=== PATIENT | female | born 1965 | race Caucasian/White ===

== ENCOUNTER 2022-02-02 08:10 | Day surgery (SDC) | payer MEDICARE, MEDICAID, SELFPAY ==
[2022-01-31 13:03] LABS: Hematocrit 40.3 % (37-47); Hemoglobin 13.1 g/dL (12.0-15.0); Mean Corp Hgb Conc 32.5 g/dL (32-36); Mean Corpuscular Hgb 28.9 pg (27.0-32.0); Mean Corpuscular Volume 88.8 fL (81-99); Mean Platelet Vol. 10.7 fl (6.2-12.0); Platelet Count 195 K/mm3 (150-450); RBC Distribution Width CV 13.6 % (11.6-14.6); RBC Distribution Width SD 44.4 fl (35.1-43.9); Red Blood Count 4.54 M/mm3 (4.2-5.4)
[2022-02-02] VITALS (8 sets, daily range): BP systolic 95–119; BP diastolic 42–81; PULSE 60–66; RESP 16–18; TEMP 36.3–36.6; O2SAT 97–100; BMI 54.2
[2022-02-02] MEDS: Lidocaine 1% (20 ml mdv) 20 ML Vial (08:42)
[2022-02-02] MEDS: Lactated Ringers 1,000 ML 15 ML IV (08:42)
--- NOTE | 2022-02-02 09:50 | EMB_PTH ---
PATIENT: GILMAR HOLLOWAY LOC: [facility] – [place] U#:[id number] AGE/SX: 56/F ROOM: RE02/02/[address]: Dr. Sharon Andre DO : 1965 BED: DIS: 02/02/2022 SPEC #: [id number] RECD: 02/02/22 12:48 STATUS: LEO REINIER #: [id number] KRISTEN: 02/02/22 09:[address]: Sharon Andre DEPT: SURGICAL PATHOLOGY RECD BY: Priti Schroeder ENTERED: 02/03/22 07:22 SP TYPE: ENDOM BX/C LG DR: Dr. Dennys Trejo MD Tissues: Endometrium, NOS Procedures: Surgery Specimen Level IV HEADER OPERATION: Hysteroscopy, D & C Symphion, polypectomy PRE-OP DIAGNOSIS: Stenotic cervix, PMB, thickened endometrium TISSUE SUBMITTED: Polyp and endometrial curettings MICROSCOPIC DIAGNOSIS Polyp and endometrial curettings: Fragments of weakly proliferative endometrium and mucous. See comment. JAIME:ebonie 02/06/2022 COMMENT A few of the fragments show polypoid and hyalinized appearance may represent fragment of polyp. Clinical correlation and appropriate follow up are necessary. MICROSCOPIC DESCRIPTION Slides are reviewed. GROSS DESCRIPTION Received in fixative is one container labeled with the patient's name and designated polyp and endometrial curettings. The specimen consists of multiple fragments of hemorrhagic soft tissue mixed with mucoid tissue that in aggregate measure 3 x 2.5 x 0.3 cm. The specimen is totally submitted in one cassette. / JAIME:ebonie 02/03/2022 TC:5 CPT: 75157
--- NOTE | 2022-02-02 10:02 | PCM.DC ---
Discharge Instructions Diet Discharge Diet: No restrictions Activity Discharge Activity: May Drive (Once you are at least 24 hours out from surgery) and May Shower May resume sexual activity in: 1-2 weeks Weight Bearing Status: Weight bearing as tolerated Lifting Restrictions: none Additional Activity Instructions:: No tampons, intercourse, hot tubs, tub baths, or pools for 1 week Dressing / Incision Call your doctor if you observe: Fever of 101 or Higher, Coldness, Increased Pain, Numbness or Tingling, Change in Color, Inability to urinate, Inability to have a bowel movement, Using more than 1 pad per hour, Dizziness, Swelling in the ankles, Chest pain, Increased palpitations (irregular heartbeat), Calf discomfort and Uncontrolled pain Follow Up Care Please Follow Up With: Sharon Andre DO When: 1 week Test Results: Test results from this visit will be discussed in further detail at your follow-up appointment, if applicable. Discharge Plan Admission Primary Reason for Your Visit: surgery Attending Provider: Sharon Andre Primary Care Provider: Dennys Trejo Discharge Orders/Prescriptions Prescriptions: Continued propranolol [Inderal LA] 120 MG capsule,extended release 24 hr 120 mg PO DAILY RF: 0 hydroxychloroquine [Plaquenil] 200 MG tablet 200 mg PO BID RF: 0 duloxetine [Cymbalta] 60 MG capsule 120 mg PO DAILY RF: 0 triamterene-hydrochlorothiazid 37.5-25 mg capsule 1 cap PO DAILY RF: 0 omeprazole 20 mg capsule,delayed release(DR/EC) 20 mg PO BID RF: 0 Myrbetriq 25 mg tablet extended release 24 hr 25 mg PO DAILY RF: 0 Eliquis 2.5 mg tablet 2.5 mg PO BID RF: 0 Osphena 60 mg tablet 60 mg PO DAILY RF: 0 multivitamin Tablet 1 tab PO DAILY RF: 0 vitamin B complex Tablet 1 tab PO DAILY RF: 0 cholecalciferol (vitamin D3) [Vitamin D3] 25 mcg (1,000 unit) Tablet 100 mcg PO DAILY RF: 0 Joint Health 40-10-5-3.3 mg Tablet 2 tab PO BID RF: 0 Referrals / Follow Up: Dennys Trejo MD [Primary Care Provider] - Disposition Disposition (needs filled in before D/C Order can be placed): Home, Self Care
--- NOTE | 2022-02-02 10:03 | PCM.OPRPT ---
Problems Associated Problem List Diagnoses (1) PMB (postmenopausal bleeding): (2) Thickened endometrium: Report of Operation Date of Procedure: 02/02/22 Pre-Operative Diagnosis: PMB, thickened endometrium Post-Operative Diagnosis: As above, endometrial polyp Surgery/Procedure Performed:: Hysteroscopy, polypectomy, D&C Description of Surgical Findings:: 1 endometrial polyp noted on posterior wall of uterus. Endometrium was atrophic appearing. Uterine cavity was otherwise normal appearing. Bilateral tubal ostia visualized. Surgeon: Sharon Andre Type of Anesthesia: MAC Special Medications: None Specimen's removed: Endometrial curettings and endometrial polyp Drains: None Estimated Blood Loss (mL): < 50 cc Fluids Replaced: 350 cc deficit Description of Procedure: Patient was taken to the operating room where MAC anesthesia was found to be adequate. She was prepped and draped in the dorsal lithotomy position using yellow fin stirrups. A right angle was placed in the posterior vagina to expose the cervix. A single-tooth tenaculum was placed on the anterior lip of the cervix. The cervix was stenotic, but easily dilated to accommodate the hysteroscope. The Symphion hysteroscope was advanced to the fundus of the uterus and distended with normal saline. 1 endometrial polyp was noted. Using the Symphion resection device the polyp was resected. This hysteroscope was then removed. A sharp curettage was performed. Endometrial curettings and endometrial polyp were sent to pathology for review. The endometrium was otherwise atrophic. Bilateral tubal ostia were visualized. All instruments were removed from the vagina. Bleeding was hemostatic. Vaginal sweep was performed. The patient was taken to the recovery in stable condition. Grafts/Implants Used: None Complications None Admit VTE Documentation VTE Present on Admission: No VTE Mechan Device Prophylaxis: SCD's
== END 2022-02-02 23:59 | disposition home or self-care (01) ==
LOC: SDC 08:12 → AC 08:12
PROVIDERS: PCP Internal Medicine; Referring Provider Obstetrics & Gynecology; Visit Provider Obstetrics & Gynecology
PROC: 0UB98ZZ Excision of Uterus, Via Natural or Artificial Opening Endoscopic (ICD-10-PCS; CPT 58558; principal; 2022-02-02 09:35)
DX: N84.0 Polyp of corpus uteri (principal); M35.00 Sjogren syndrome, unspecified; D68.59 Other primary thrombophilia; N95.0 Postmenopausal bleeding; I10 Essential (primary) hypertension; M79.7 Fibromyalgia; Z86.718 Personal history of other venous thrombosis and embolism; F32.A Depression, unspecified; G47.33 Obstructive sleep apnea (adult) (pediatric); G56.03 Carpal tunnel syndrome, bilateral upper limbs; Z79.899 Other long term (current) drug therapy; Z79.01 Long term (current) use of anticoagulants; M19.90 Unspecified osteoarthritis, unspecified site; K21.9 Gastro-esophageal reflux disease without esophagitis
CPT/HCPCS: 58558; 00952; 36415; 85027; 86850; 86900; 86901; 88305; J7120; J2405

== ENCOUNTER → 2022-03-16 | Outpatient (CLI) | payer MEDICARE, MEDICAID, SELFPAY ==
--- NOTE | 2022-03-16 07:40 | CT_ITS ---
EXAM: CT MAXILLOFACIAL SINUSES WITHOUT INTRAVENOUS CONTRAST CLINICAL INDICATION: CHRONIC SINUSITIS, ETHMOID POLYP TECHNIQUE: Helically acquired images were obtained of the maxillofacial sinuses without intravenous contrast. This CT exam was performed using one or more of the following dose reduction techniques: automated exposure control, adjustment of the mA and/or kV according to patient size, and/or use of iterative reconstruction technique. This report was created using [employer] report generation technology. RADIATION DOSE: CTDIvol = 33.06 mGy, DLP = 755.34 mGy-cm COMPARISON: Jun 24 2016 11:23am FINDINGS: MAXILLARY SINUSES: Complete opacification of the left maxillary sinus. Ostiomeatal complexes are normally formed. SPHENOID SINUSES: Complete opacification of the sphenoid sinus. FRONTAL SINUSES: Complete opacification of the left frontal sinus. ETHMOID AIR CELLS: Complete opacification of the left ethmoid sinus. Mild opacification of the right ethmoid sinus. NASAL CAVITY/SEPTUM: Nasal septum is midline. Nasal turbinates are unremarkable. BONES/JOINTS: Anterior cranial fossa is unremarkable. ORBITS: Unremarkable. DENTAL: There is a worse left maxilla periodontal lucency. This is concerning for a periodontal abscess. CT/Sinus/Facial Bone IMPRESSION: 1. There is a worse left maxilla periodontal lucency. This is concerning for a periodontal abscess. 2. Sinus disease on the left side involving the frontal ethmoid and maxillary sinuses and the bilateral sphenoid sinus. These findings are stable. Electronically Signed: Patrick Becerra MD at 14:45 EDT ,
== END | disposition home or self-care (01) ==
LOC: CT 07:39
PROVIDERS: PCP Internal Medicine; Referring Provider Otolaryngology; Visit Provider Otolaryngology
DX: J32.9 Chronic sinusitis, unspecified (principal); J33.0 Polyp of nasal cavity
CPT/HCPCS: 70486

== ENCOUNTER 2022-08-28 09:54 | Day surgery (SDC) | payer MEDICARE, MEDICAID, SELFPAY ==
--- NOTE | 2022-08-22 08:40 | EKG12_ITS ---
Test Reason : PREOP Blood Pressure : / mmHG Vent. Rate : 059 BPM Atrial Rate : 059 BPM P-R Int : 174 ms QRS Dur : 098 ms QT Int : 432 ms P-R-T Axes : 033 -21 -05 degrees QTc Int : 427 ms Sinus bradycardia Nonspecific ST and T wave abnormality Abnormal ECG Confirmed by PATTI RODRIGUEZ, KINDRA ([id number]), society editor MADELYN BOOTH ([id number]) on 08/23/2022 9:32:57 AM Referred By: ANDREE Confirmed By:KINDRA ARMSTRONG MD
[2022-08-22 09:37] LABS: Hematocrit 38.5 % (37-47); Mean Corp Hgb Conc 33.8 g/dL (32-36); Mean Corpuscular Volume 88.9 fL (81-99); Mean Platelet Vol. 10.3 fl (6.2-12.0); Platelet Count 205 K/mm3 (150-450); RBC Distribution Width CV 13.2 % (11.6-14.6); RBC Distribution Width SD 42.7 fl (35.1-43.9); Red Blood Count 4.33 M/mm3 (4.2-5.4); White Blood Count 4.2 K/mm3 (4.4-11.0)
[2022-08-22 10:06] LABS: Anion Gap 4 (5-15); BUN 21 mg/dL (7-18); Calcium,Total 8.8 mg/dL (8.5-10.1); Chloride 105 mmol/L (98-107); EST Glomerular Filtration Rate 60 mL/min (>60); Est Glom Filt Rate - Afr Amer 73 mL/min (>60); Glucose 95 mg/dL (74-106); Sodium Level 139 mmol/L (136-145)
[2022-08-28] VITALS (7 sets, daily range): BP systolic 115–144; BP diastolic 62–94; PULSE 57–67; RESP 16–18; TEMP 36.1–36.8; O2SAT 93–100; BMI 52.8
--- NOTE | 2022-08-28 | ETH_PTH ---
PATIENT: GILMAR HOLLOWAY LOC: [facility] – [place] U#:[id number] AGE/SX: 57/F ROOM: RE08/28/[address]: Dr. Antoni Haile MD : 1965 BED: DIS: 08/28/2022 SPEC #: [id number] RECD: 08/28/22 15:21 STATUS: [place]O [place] #: [id number] KRISTEN: 08/28/22 00:[address]: Antoni Haile DEPT: SURGICAL PATHOLOGY RECD BY: Javon Elkins ENTERED: 08/29/22 08:48 SP TYPE: ETH TISS OTHR DR: Dr. Dennys Trejo MD Tissues: Ethmoid sinus, NOS Procedures: Special Stain Group I Surgery Specimen Level IV GMS Stain (control) HEADER OPERATION: Functional endoscopic sinus surgery, left maxilla PRE-OP DIAGNOSIS: Chronic sinusitis; polyp of nasal cavity TISSUE SUBMITTED: Contents of left sinus MICROSCOPIC DIAGNOSIS Left sinus contents, curettings: Consistent with acute and chronic sinusitis. Negative for fungal organisms. See comment. AM:ebonie 08/30/2022 COMMENT GMS stain with matched control was used in the evaluation of this case. MICROSCOPIC DESCRIPTION Slides are reviewed. GROSS DESCRIPTION Received in fixative is one container labeled with the patient's name and designated contents of left sinus. The specimen consists of multiple fragments of hemorrhagic soft tissue that in aggregate measure 6 x 5 x 1 cm. Test Man tissue is submitted in three cassettes. / SJ:ebonie 08/29/2022 TC:2 CPT: 27479, 55607
[2022-08-28] MEDS: Lactated Ringers 1,000 ML 15 ML IV ×2 (10:30→12:46)
--- NOTE | 2022-08-28 11:24 | DS.PCM_ITS ---
Providers Primary Care Physician: Dr. Dennys Trejo MD Reason For Visit: FESS NAVIGATION Medications at Discharge Home Medications duloxetine 60 mg capsule,delayed release (Cymbalta) 120 mg PO DAILY MOOD 08/17/16 hydroxychloroquine 200 mg tablet (Plaquenil) 200 mg PO BID 08/17/16 propranolol 120 mg capsule,24 hr,extended release (Inderal LA) 120 mg PO DAILY HTN 08/17/16 apixaban 2.5 mg tablet (Eliquis) 2.5 mg PO BID 01/26/22 cartilage 40 mg-collagen II 10 mg-boron 5 mg-hyaluronate 3.3 mg tablet (Joint Health) 2 tab PO BID SUPPLEMENT 01/26/22 cholecalciferol (vitamin D3) 25 mcg (1,000 unit) tablet (Vitamin D3) 100 mcg PO DAILY SUPPLEMENT 01/26/22 mirabegron 25 mg tablet,extended release 24 hr (Myrbetriq) 25 mg PO DAILY BLADDER 01/26/22 multivitamin 1 tab PO DAILY SUPPLEMENT 01/26/22 omeprazole 20 mg capsule,delayed release 40 mg PO DAILY GERD 01/26/22 triamterene 37.5 mg-hydrochlorothiazide 25 mg capsule 1 cap PO DAILY HTN 01/26/22 vitamin B complex 1 tab PO DAILY SUPPLEMENT 01/26/22 Weight / BMI Weight Weight: 139.706 kg Body Mass Index (BMI) 52.8 ABG / Lab / Microbiology Data Result Diagrams: 08/22/22 08:49 08/22/22 08:49 D/C Instructions Discharge Diet: No restrictions Additional Activity Instructions: NO NOSEBLOWING. START SALINE NASAL SPRAY/RINSE TOMORROW AM. RINSE 4X/DAY Please Follow Up With: Antoni Haile MD When: Next week Meaningful Use Info Meaningful Use Diagnoses (Choose all that apply): None applicable Discharge Plan Admission Attending Provider: Antoni Haile Primary Care Provider: Dennys Trejo Discharge Orders/Prescriptions Prescriptions: No Action propranolol [Inderal LA] 120 MG capsule,extended release 24 hr 120 mg PO DAILY hydroxychloroquine [Plaquenil] 200 MG tablet 200 mg PO BID duloxetine [Cymbalta] 60 MG capsule 120 mg PO DAILY triamterene-hydrochlorothiazid 37.5-25 mg capsule 1 cap PO DAILY Label Comments: TAKE 1 CAPSULE BY MOUTH EVERY DAY IN THE MORNING omeprazole 20 mg capsule,delayed release(DR/EC) 40 mg PO DAILY Label Comments: TAKE 1 CAPSULE BY MOUTH TWICE A DAY Myrbetriq 25 mg tablet extended release 24 hr 25 mg PO DAILY Label Comments: TAKE 1 TABLET BY MOUTH EVERY DAY Eliquis 2.5 mg tablet 2.5 mg PO BID Label Comments: LAST DOSE WILL BE 08/22/22 FOR SURGERY ON 08/28/[address] HAILE multivitamin Tablet 1 tab PO DAILY vitamin B complex Tablet 1 tab PO DAILY cholecalciferol (vitamin D3) [Vitamin D3] 25 mcg (1,000 unit) Tablet 100 mcg PO DAILY [employer] 40-10-5-3.3 mg Tablet 2 tab PO BID Referrals / Follow Up: Dennys Trejo MD [Primary Care Provider] - Disposition Disposition (needs filled in before D/C Order can be placed): Home, Self Care
[2022-08-28] MEDS: Oxymetazoline 0.05% 1 SPRAY SPRAY.BTL 15 SPRAY (11:53)
[2022-08-28] MEDS: Lidocaine 2% /Epi 1:100 (20ml) 20 ML VIAL OPERA.SITE (11:53)
--- NOTE | 2022-08-28 13:00 | PCM.OPRPT ---
Report of Operation Date of Procedure: 08/28/22 Pre-Operative Diagnosis: left chronic sinusitis Post-Operative Diagnosis: same Surgery/Procedure Performed:: Left total ethmoidectomy; left maxillary antrostomy with tissue removal; left sphenoidotomy; left frontal sinusotomy Surgeon: Antoni Haile Type of Anesthesia: General Anesthesiologist: Dvae Chappell Estimated Blood Loss (mL): minimal Description of Procedure: The patient was taken to the operating room on 08/28/2022. The patient was placed in the supine position on the operating table. The patient was given sufficient general endotracheal anesthesia. The head of bed was elevated 30 degrees. The navigation system was placed and verified per protocol and found to be accurate. 0, 30 and 70 degrees rigid nasal endoscopes were used throughout the entire case. The middle turbinate uncinate process and polyps were injected with 1% lidocaine with epinephrine on the left. A large polyp was removed from the left middle meatus using a sinus shaver. Polyp was taken down in the antrum using a sinus shaver. In doing so, the maxillary antrostomy was created. Tissue was removed from the left maxillary sinus using a microdebrider with a 70 degree rigid nasal endoscope for visualization. Polyp was removed from the left ethmoid cavity using a 30 degree endoscope for visualization with a microdebrider. Anterior posterior ethmoidectomy were then carried out using a sinus shaver curette and Blakesley Pooja forceps. Ethmoid cells were verified for relation to the skull base and orbit prior to being entered with the navigation system. There was a polyp occluding the left sphenoid ostia. This was removed with a sinus shaver. The sphenoid was then opened on the left side using a sinus shaver and confirmed with navigation. I then confirmed the frontal recess with a navigation. I then used a giraffe forcep to remove polypoid tissue from the left frontal recess. I was able to insert the giraffe entirely into the maxillary sinus. Hemostasis was then achieved using Afrin pledgets. The pledgets were then removed and Pearl powder was applied for absolute hemostasis. The procedure was then terminated. The patient was then awoken and brought to the recovery room in stable condition blood loss less than 30 cc replacement none. Sponge, needle, instrument count were correct at the end of the procedure.
[2022-08-28] MEDS: HYDROcodone Bitartrate/Apap 5/325 Tablet PO (15:02)
== END 2022-08-28 15:44 | disposition home or self-care (01) ==
LOC: SDC 09:55 → AC 10:02
PROVIDERS: PCP Internal Medicine; Referring Provider Otolaryngology; Visit Provider Otolaryngology
PROC: (CPT 30110; principal; 2022-08-28 11:15)
DX: J32.8 Other chronic sinusitis (principal); M35.9 Systemic involvement of connective tissue, unspecified; J33.0 Polyp of nasal cavity; G47.30 Sleep apnea, unspecified; F32.A Depression, unspecified; I10 Essential (primary) hypertension
CPT/HCPCS: 30110; 31267; 00160; 36415; 80048; 85027; 88305; 88312; 93005; J7120; J2405